=== PATIENT | male | born 1965 | race Caucasian/White ===

== ENCOUNTER 2016-12-21 08:31 | Inpatient (IN) | payer MEDICARE ==
[~2016-12-21] VITALS: Ht 177.8 cm; Wt 94.3 kg
[~2016-12-21 08:31] MED LIST: ASPIR 8181 MG PO; DILTIAZEM 24HR120 MG PO; LEVAQUIN750 MG PO; LEVEMIR100 UNIT/1 SC; LIPITOR TAB 1010 MG PO; LISINOPRIL10 MG PO; METFORMIN HYDR500 GM PO; NOVOLOG100 UNIT/1 SC; OMEPRAZOLE20 MG PO; ZYLOPRIM 100 M100 MG PO
[2016-12-21] MEDS ORDERED: IBUPROFEN IB200 MG PO (10:05)
[2016-12-21 13:51] LABS: HEMOGLOBIN 13.7 gm/dl (14.0-17.5); RED BLOOD COUNT 4.78 M/UL (4.20-5.50); WHITE BLOOD COUNT 16.3 K/UL (4.5-11.0)
--- NOTE | 2016-12-21 17:25 | NUR ---
PATIENT POST RESIDUAL URINE 74CC.
[2016-12-22 06:19] LABS: WHITE BLOOD COUNT 14.1 K/UL (4.5-11.0)
[2016-12-22 06:23] LABS: HEMOGLOBIN 11.7 gm/dl (14.0-17.5); RED BLOOD COUNT 4.19 M/UL (4.20-5.50)
[2016-12-23 05:13] LABS: HEMOGLOBIN 11.4 gm/dl (14.0-17.5); RED BLOOD COUNT 4.06 M/UL (4.20-5.50)
[2016-12-23 05:14] LABS: WHITE BLOOD COUNT 10.2 K/UL (4.5-11.0)
[2016-12-23 05:53] LABS: BUN/CREATININE RATIO 10 (0-10)
[2016-12-24 05:53] LABS: HEMOGLOBIN 11.4 gm/dl (14.0-17.5); RED BLOOD COUNT 4.05 M/UL (4.20-5.50); WHITE BLOOD COUNT 10.6 K/UL (4.5-11.0)
[2016-12-24 06:09] LABS: BUN/CREATININE RATIO 8 (0-10)
[2016-12-26 06:23] LABS: HEMOGLOBIN 10.7 gm/dl (14.0-17.5); RED BLOOD COUNT 3.81 M/UL (4.20-5.50); WHITE BLOOD COUNT 9.4 K/UL (4.5-11.0)
[2016-12-26 06:42] LABS: BUN/CREATININE RATIO 9 (0-10)
[2016-12-27 05:59] LABS: HEMOGLOBIN 11.1 gm/dl (14.0-17.5); RED BLOOD COUNT 3.94 M/UL (4.20-5.50); WHITE BLOOD COUNT 9.4 K/UL (4.5-11.0)
[2016-12-27 06:23] LABS: BUN/CREATININE RATIO 10 (0-10)
[2016-12-28 06:17] LABS: BUN/CREATININE RATIO 13 (0-10)
[2016-12-28] MEDS ORDERED: HABITROL 21 MG P1 EA TD (12:52)
[2016-12-28] MEDS ORDERED: UNASYN IV (12:52)
[2016-12-28] MEDS ORDERED: ZOFRAN4 MG PO (12:54)
[2016-12-28] MEDS ORDERED: CIPROFLOXACIN500 M1 PO (12:55)
== END 2016-12-28 15:23 | disposition home health service (06) | DRG 629 ==
LOC: M/S 08:31
PROVIDERS: Emergency Medicine; Family Medicine; Internal Medicine; Internal Medicine Infectious Disease; Physician Assistant; Podiatrist Foot & Ankle Surgery; ADMIT Internal Medicine
PROC: 0KNV0ZZ Release Right Foot Muscle, Open Approach (ICD-10-PCS; principal; 2016-12-23 09:15)
PROC: 0QBN0ZZ Excision of Right Metatarsal, Open Approach (ICD-10-PCS; principal; 2016-12-23 09:15)
PROC: 0LXV0ZZ Transfer Right Foot Tendon, Open Approach (ICD-10-PCS; principal; 2016-12-23 09:15)
PROC: 3E0U029 Introduction of Other Anti-infective into Joints, Open Approach (ICD-10-PCS; principal; 2016-12-23 09:15)
DX: E11.621 Type 2 diabetes mellitus with foot ulcer (principal); M86.8X7 Other osteomyelitis, ankle and foot; E87.2 Acidosis; M21.541 Acquired clubfoot, right foot; M24.574 Contracture, right foot; L97.519 Non-pressure chronic ulcer of other part of right foot with unspecified severity; N17.9 Acute kidney failure, unspecified; E11.43 Type 2 diabetes mellitus with diabetic autonomic (poly)neuropathy; M89.771 Major osseous defect, right ankle and foot; M20.41 Other hammer toe(s) (acquired), right foot; R31.29 Other microscopic hematuria; D48.5 Neoplasm of uncertain behavior of skin; I10 Essential (primary) hypertension; D64.9 Anemia, unspecified; F17.210 Nicotine dependence, cigarettes, uncomplicated; M19.90 Unspecified osteoarthritis, unspecified site; E78.5 Hyperlipidemia, unspecified; Z79.4 Long term (current) use of insulin; Z86.39 Personal history of other endocrine, nutritional and metabolic disease; B96.5 Pseudomonas (aeruginosa) (mallei) (pseudomallei) as the cause of diseases classified elsewhere; K21.9 Gastro-esophageal reflux disease without esophagitis; Z96.643 Presence of artificial hip joint, bilateral; Z79.82 Long term (current) use of aspirin; Z79.1 Long term (current) use of non-steroidal anti-inflammatories (NSAID); Z79.84 Long term (current) use of oral hypoglycemic drugs; Z79.899 Other long term (current) drug therapy
CPT/HCPCS: 36415; 73630; 73718; 80048; 80053; 80061; 80202; 81001; 82962; 83605; 83735; 85025; 85027; 86140; 87040; 87070; 87077; 87086; 87186; 87205; 93005; 93926; 97110; 97116; C1713; J0295; J1580; J1650; J1815; J2185; J2250; J2795; J3010; J3370; J7030; J7040; J7050; J7070; J7120

== ENCOUNTER 2021-01-24 09:13 | Inpatient (IN) | payer OTHER ==
[~2021-01-24] VITALS: Ht 177.8 cm; Wt 83.9 kg
[~2021-01-24 09:13] MED LIST changes: +CIPROFLOXACIN500 M1 PO; +DAKIN'S473 M1 TOP; +ECOTRIN81 MG PO; +FEOSOL325 MG PO; +FERROUS SULFAT325 M2 PO; +GLUCOPHAGE500 MG PO; +HABITROL 21 MG P1 EA TD; +IBUPROFEN IB200 MG PO; +NORVASC10 MG PO; +NOVOLOG 10100 UNITS1 SC; +PERCOCET 5/325 T1 EA PO; +TOPROL XL50 MG PO; +UNASYN IV; +VANCOMYCIN IV; +VIBRAMYCIN100 MG PO; +ZOFRAN4 MG PO
[2021-01-24 10:00] LABS: HEMOGLOBIN 12.4 gm/dl (14.0-17.5); RED BLOOD COUNT 4.59 M/UL (4.20-5.50); WHITE BLOOD COUNT 11.3 K/UL (4.5-11.0)
[2021-01-24 10:32] LABS: BUN/CREATININE RATIO 10 (0-10)
[2021-01-25 03:37] LABS: HEMOGLOBIN 10.7 gm/dl (14.0-17.5); WHITE BLOOD COUNT 11.1 K/UL (4.5-11.0)
[2021-01-25 03:43] LABS: BUN/CREATININE RATIO 10 (0-10)
[2021-01-25 04:08] LABS: RED BLOOD COUNT 4.07 M/UL (4.20-5.50)
[2021-01-26 04:25] LABS: HEMOGLOBIN 10.9 gm/dl (14.0-17.5); RED BLOOD COUNT 4.12 M/UL (4.20-5.50); WHITE BLOOD COUNT 11.8 K/UL (4.5-11.0)
[2021-01-26 04:46] LABS: BUN/CREATININE RATIO 9 (0-10)
[2021-01-27 03:26] LABS: HEMOGLOBIN 10.5 gm/dl (14.0-17.5); RED BLOOD COUNT 3.99 M/UL (4.20-5.50); WHITE BLOOD COUNT 10.1 K/UL (4.5-11.0)
[2021-01-27 03:48] LABS: BUN/CREATININE RATIO 9 (0-10)
--- NOTE | 2021-01-27 14:54 | NUR ---
POST OP: PT A/O. WNL. RIGHT FOOT WITH BULKY SURGICAL DRSG CDI. WCTM.
--- NOTE | 2021-01-27 17:55 | NUR ---
CHANGED CHEST DSG WET TO DRY DIRECTED BY MD. PT TOLERATED WELL.
[2021-01-28 04:04] LABS: BUN/CREATININE RATIO 8 (0-10)
[2021-01-28 10:54] LABS: HEMOGLOBIN 10.4 gm/dl (14.0-17.5); RED BLOOD COUNT 3.91 M/UL (4.20-5.50); WHITE BLOOD COUNT 11.1 K/UL (4.5-11.0)
[2021-01-29 03:37] LABS: RED BLOOD COUNT 3.79 M/UL (4.20-5.50); WHITE BLOOD COUNT 8.9 K/UL (4.5-11.0)
--- NOTE | 2021-01-29 15:26 | NUR ---
DRESSING CHANGED PER MD ORDER. PATIENT TOLERATED WELL.
[2021-01-30 05:20] LABS: HEMOGLOBIN 9.4 gm/dl (14.0-17.5); RED BLOOD COUNT 3.63 M/UL (4.20-5.50); WHITE BLOOD COUNT 7.9 K/UL (4.5-11.0)
[2021-01-30 05:38] LABS: BUN/CREATININE RATIO 9 (0-10)
--- NOTE | 2021-01-30 05:47 | NUR ---
Vanc trough at 21.1; reported to pharmacy. Hold this dose for now.
[2021-01-31 05:12] LABS: HEMOGLOBIN 10.1 gm/dl (14.0-17.5); RED BLOOD COUNT 3.81 M/UL (4.20-5.50); WHITE BLOOD COUNT 7.4 K/UL (4.5-11.0)
[2021-01-31 05:24] LABS: BUN/CREATININE RATIO 9 (0-10)
[2021-02-01 03:50] LABS: HEMOGLOBIN 10.4 gm/dl (14.0-17.5); RED BLOOD COUNT 3.98 M/UL (4.20-5.50); WHITE BLOOD COUNT 6.8 K/UL (4.5-11.0)
[2021-02-01 04:11] LABS: BUN/CREATININE RATIO 9 (0-10)
--- NOTE | 2021-02-01 11:41 | NUR ---
PATIENT UP IN CHAIR WATCHING TV
[2021-02-02 05:12] LABS: HEMOGLOBIN 10.4 gm/dl (14.0-17.5); RED BLOOD COUNT 4.02 M/UL (4.20-5.50); WHITE BLOOD COUNT 7.7 K/UL (4.5-11.0)
[2021-02-02 05:26] LABS: BUN/CREATININE RATIO 9 (0-10)
[2021-02-03 04:50] LABS: HEMOGLOBIN 10.5 gm/dl (14.0-17.5); RED BLOOD COUNT 3.97 M/UL (4.20-5.50); WHITE BLOOD COUNT 6.9 K/UL (4.5-11.0)
[2021-02-03 05:12] LABS: BUN/CREATININE RATIO 11 (0-10)
[2021-02-04 04:13] LABS: HEMOGLOBIN 10.1 gm/dl (14.0-17.5); RED BLOOD COUNT 3.87 M/UL (4.20-5.50); WHITE BLOOD COUNT 7.2 K/UL (4.5-11.0)
[2021-02-04 04:50] LABS: BUN/CREATININE RATIO 14 (0-10)
--- NOTE | 2021-02-04 16:48 | NUR ---
PATIENT RETURNED FROM SURGERY. VITAL SIGNS WITHIN NORMAL LIMITS. BULKY SURGICAL DRESSING NOTED TO RIGHT LOWER EXT. NO ACUTE DISTRESS NOTED. DENIES PAIN. COLOR AND PULSES TO RLE WITHIN NORMAL LIMITS.
[2021-02-05 04:47] LABS: BUN/CREATININE RATIO 17 (0-10)
--- NOTE | 2021-02-05 09:50 | NUR ---
TELEMETRY CALLED AND NOTIFIED OF 5 BEAT RUN OF V-TACH. IS AWAY AND STRIP IN IN THE PT CHART.
[2021-02-05] MEDS ORDERED: HUMALOG 10100 UNITS/ SC (13:29)
[2021-02-05] MEDS ORDERED: HYDROCODON-ACE1 EAC4 PO (13:29)
[2021-02-05] MEDS ORDERED: CLOPIDOGREL75 MG PO (13:29)
[2021-02-05] MEDS ORDERED: ASPIRIN EC81 MG PO (13:29)
[2021-02-05] MEDS ORDERED: MAALOX PLUS 3030 ML PO (13:29)
[2021-02-05] MEDS ORDERED: CRESTOR 10 MG T10 MG PO (13:29)
[2021-02-05] MEDS ORDERED: LANTUS INS100 UTS/M1 SQ (13:29)
[2021-02-05] MEDS ORDERED: FISH OIL EC 1,1 EACH PO (13:29)
[2021-02-05] MEDS ORDERED: ENOXAPARIN40 MG/0.4 SC (13:29)
[2021-02-05] MEDS ORDERED: AMLODIPINE BESYL5 MG PO (13:29)
== END 2021-02-05 20:10 | DRG 853 ==
LOC: ER1 09:13 → CDU 13:21 → M/S 13:21
PROVIDERS: Internal Medicine; Physician Assistant; Student in an Organized Health Care Education/Training Program; Surgery; ADMIT Internal Medicine
PROC: 0JB60ZZ Excision of Chest Subcutaneous Tissue and Fascia, Open Approach (ICD-10-PCS; principal; 2021-01-25 12:40)
PROC: 0Y6V0Z0 Detachment at Right 4th Toe, Complete, Open Approach (ICD-10-PCS; 2021-01-27)
PROC: 0Y6X0Z0 Detachment at Right 5th Toe, Complete, Open Approach (ICD-10-PCS; 2021-01-27)
PROC: 0JBQ0ZZ Excision of Right Foot Subcutaneous Tissue and Fascia, Open Approach (ICD-10-PCS; 2021-01-27)
DX: A41.9 Sepsis, unspecified organism (principal); A48.0 Gas gangrene; E11.52 Type 2 diabetes mellitus with diabetic peripheral angiopathy with gangrene; L03.115 Cellulitis of right lower limb; M86.8X7 Other osteomyelitis, ankle and foot; L02.213 Cutaneous abscess of chest wall; E11.65 Type 2 diabetes mellitus with hyperglycemia; M10.9 Gout, unspecified; F17.200 Nicotine dependence, unspecified, uncomplicated; D64.9 Anemia, unspecified; Z20.822 Contact with and (suspected) exposure to COVID-19; E11.69 Type 2 diabetes mellitus with other specified complication; Z96.643 Presence of artificial hip joint, bilateral; Z91.14 Patient's other noncompliance with medication regimen; Z98.890 Other specified postprocedural states; Z80.3 Family history of malignant neoplasm of breast; Z80.42 Family history of malignant neoplasm of prostate
CPT/HCPCS: ECHO; 0240U; 36415; 71045; 71260; 73630; 73721; 75630; 80048; 80053; 80202; 81001; 82550; 82553; 82962; 83036; 83605; 83735; 84100; 84484; 85025; 85027; 85652; 86140; 86850; 86900; 86901; 87040; 87070; 87077; 87086; 87186; 87205; 93005; 93306; 93925; 96365; 96366; 96375; 97110; 97110-GP-CQ; 97162; 97164; 97166; 97168; 97530; 97530-GP-CQ; 99285; C1725; C1751; C1769; C1894; J0295; J0692; J1100; J1335; J1644; J1650; J2001; J2185; J2250; J2370; J2405; J2543; J2704; J2795; J3010; J3370; J7030; J7040; J7050; J7070; J7120; Q4133; Q9962; Q9967; U0002

== ENCOUNTER 2022-06-12 14:37 | Emergency (ER) | payer OTHER ==
[~2022-06-12 14:37] MED LIST changes: +AMLODIPINE BESYL5 MG PO; +ASPIRIN EC81 MG PO; +CLOPIDOGREL75 MG PO; +CRESTOR 10 MG T10 MG PO; +ENOXAPARIN40 MG/0.4 SC; +FISH OIL EC 1,1 EACH PO; +HUMALOG 10100 UNITS/ SC; +HYDROCODON-ACE1 EAC4 PO; +LANTUS INS100 UTS/M1 SQ; +MAALOX PLUS 3030 ML PO
[2022-06-12] MEDS ORDERED: AMLODIPINE BESYL5 MG PO (15:23)
[2022-06-12] MEDS ORDERED: CEPHALEXIN500 MG PO (15:23)
[2022-06-12 15:38] LABS: HEMOGLOBIN 14.7 gm/dl (14.0-17.5); RED BLOOD COUNT 5.09 M/UL (4.20-5.50); WHITE BLOOD COUNT 8.5 K/UL (4.5-11.0)
[2022-06-12 16:01] LABS: BUN/CREATININE RATIO 11 (0-10)
[2022-06-12] MEDS ORDERED: GLUCOPHAGE 500500 MG PO (16:29)
== END 2022-06-12 16:40 | disposition home or self-care (01) ==
LOC: ER1 14:37
PROVIDERS: Emergency Medicine
DX: E11.621 Type 2 diabetes mellitus with foot ulcer (principal); E11.65 Type 2 diabetes mellitus with hyperglycemia; L97.519 Non-pressure chronic ulcer of other part of right foot with unspecified severity; I10 Essential (primary) hypertension
CPT/HCPCS: 80053; 82009; 82803; 83690; 85025; 99284